=== PATIENT | male | born 1960 ===

== ENCOUNTER 2024-05-19 11:13 | Outpatient (CLI) | payer BC, SELFPAY ==
--- NOTE | ~2024-05-19 | US_ITS ---
US scrotum doppler INDICATION: Orchitis TECHNIQUE: Testicular sonogram utilizing grayscale and color Doppler FINDINGS: The testes are normal in size and appearance. No focal lesions are seen. The right testes measures 5.1 x 3.2 x 3.4 cm centimeters, and the left testis measures 4.5 x 3 x 2.7 cm cm. There is n ormal vascular flow to both testes. There is questionable increased vascularity of the right epididymis compared to the left. Moderate right hydrocele. IMPRESSION: 1. Moderate right hydrocele. 2: Possible mild asymmetric increased vascularity of the right epididymis compared to the left suspic ious for epididymitis. Reviewed, dictated and finalized at location B. IMPRESSION: 1. Moderate right hydrocele. 2: Possible mild asymmetric increased vascularity of the right epididymis ольга red to the left suspicious for epididymitis.
== END 2024-05-19 11:14 ==
LOC: GOSHIMG 11:14
PROVIDERS: PCP Internal Medicine Geriatric Medicine; Visit Provider Internal Medicine Geriatric Medicine
DX: N45.2 Orchitis (principal); N43.3 Hydrocele, unspecified
CPT/HCPCS: 76870; 93976